=== PATIENT | male | born 1970 | race Native Hawaiian/Other Pacific Islander ===

== ENCOUNTER 2016-08-13 | Outpatient (CLI) | payer MEDICARE, MEDICAID | END 2016-08-13 10:25 | disposition short-term general hospital (02) | CPT/HCPCS: A0425; A0429 ==

== ENCOUNTER 2016-10-16 08:21 | Outpatient (CLI) | payer MEDICARE, MEDICAID | END 2016-10-16 08:22 | disposition home or self-care (01) | DX: Z13.9 Encounter for screening, unspecified (principal); I70.203 Unspecified atherosclerosis of native arteries of extremities, bilateral legs; I73.9 Peripheral vascular disease, unspecified ==

== ENCOUNTER 2016-10-16 08:27 | Outpatient (CLI) | payer MEDICARE, MEDICAID | END 2016-10-16 08:28 | disposition home or self-care (01) | DX: Z13.9 Encounter for screening, unspecified (principal); I73.9 Peripheral vascular disease, unspecified ==

== ENCOUNTER 2016-10-16 08:34 | Outpatient (CLI) | payer MEDICARE, MEDICAID | END 2016-10-16 08:35 | disposition home or self-care (01) | DX: Z13.9 Encounter for screening, unspecified (principal); I73.9 Peripheral vascular disease, unspecified; I70.203 Unspecified atherosclerosis of native arteries of extremities, bilateral legs ==

== ENCOUNTER 2016-10-16 08:35 | Outpatient (CLI) | payer MEDICARE, MEDICAID | END 2016-10-16 08:36 | disposition home or self-care (01) | DX: Z13.9 Encounter for screening, unspecified (principal); N18.6 End stage renal disease; I70.203 Unspecified atherosclerosis of native arteries of extremities, bilateral legs; I73.9 Peripheral vascular disease, unspecified; N26.1 Atrophy of kidney (terminal); K80.20 Calculus of gallbladder without cholecystitis without obstruction; I25.10 Atherosclerotic heart disease of native coronary artery without angina pectoris; K42.9 Umbilical hernia without obstruction or gangrene ==

== ENCOUNTER 2016-11-06 09:11 | Outpatient (CLI) | payer MEDICARE, MEDICAID ==
[2016-11-06] MEDS ORDERED: ADENOSINE 90 MG/30 ML VIAL IVP SCH (10:00)
== END 2016-11-06 09:12 | disposition home or self-care (01) ==
DX: I42.9 Cardiomyopathy, unspecified (principal); E11.9 Type 2 diabetes mellitus without complications
CPT/HCPCS: 78452; 93017; A9500; J0153

== ENCOUNTER 2016-12-01 10:17 | Outpatient (CLI) | payer MEDICARE, MEDICAID | END 2016-12-01 10:18 | disposition short-term general hospital (02) | LOC: EMS 10:17 | PROVIDERS: ATTEND Surgery | DX: R07.9 Chest pain, unspecified (principal) | CPT/HCPCS: A0425; A0427 ==

== ENCOUNTER 2016-12-11 11:05 | Outpatient (CLI) | payer MEDICARE, MEDICAID | END 2016-12-11 11:06 | disposition home or self-care (01) | DX: I48.91 Unspecified atrial fibrillation (principal) ==

== ENCOUNTER 2016-12-15 14:16 | Outpatient (CLI) | payer MEDICARE, MEDICAID | END 2016-12-15 23:59 | disposition home or self-care (01) | LOC: LAB.N 14:16 | PROVIDERS: ATTEND Nurse Practitioner Gerontology | DX: I48.91 Unspecified atrial fibrillation (principal) | CPT/HCPCS: 85610 ==

== ENCOUNTER 2016-12-16 10:27 | Outpatient (CLI) | payer MEDICARE, MEDICAID ==
--- NOTE | 2016-12-16 19:05 | XRAY Report ---
CHEST, PA AND LATERAL: 12/16/2016 CLINICAL HISTORY: ESRD. COMPARISON: None. FINDINGS: Borderline heart size is noted. Mediastinum shows some mild prominence superiorly. Dialy sis catheter is noted in place entering the vascular system at the junction of the left jugular and s ubclavian veins and having its tip in the proximal aspect of the right atrium. Mild thickening of the right minor fissure is noted. Minimal interstitial parenchymal disease is sug gested about the right perihilar region. Combination of findings suggests minimal congestive heart f ailure. IMPRESSION: 1. BORDERLINE HEART SIZE WITH SUGGESTION OF MINIMAL CONGESTIVE HEART FAILURE. 2. DIALYSIS CATHETER IS NOTED IN PLACE WITH ITS TIP IN THE PROXIMAL RIGHT ATRIUM. JOB #: [id number] EXT JOB #:[id number]
== END 2016-12-16 10:28 | disposition home or self-care (01) ==
LOC: DI.N 10:27
PROVIDERS: ATTEND Internal Medicine Nephrology
DX: N18.6 End stage renal disease (principal)
CPT/HCPCS: 71020

== ENCOUNTER 2016-12-25 09:36 | Outpatient (CLI) | payer MEDICARE, MEDICAID | END 2016-12-25 09:37 | disposition home or self-care (01) | DX: I48.91 Unspecified atrial fibrillation (principal) ==

== ENCOUNTER 2017-01-01 13:42 | Outpatient (CLI) | payer MEDICARE, MEDICAID | END 2017-01-01 13:43 | disposition home or self-care (01) | LOC: LAB.N 13:42 | PROVIDERS: ATTEND Nurse Practitioner Gerontology | DX: I48.91 Unspecified atrial fibrillation (principal) | CPT/HCPCS: 85610 ==

== ENCOUNTER 2017-01-08 11:01 | Outpatient (CLI) | payer MEDICARE, MEDICAID | END 2017-01-08 11:02 | disposition home or self-care (01) | LOC: LAB.N 11:01 | PROVIDERS: ATTEND Nurse Practitioner Gerontology | DX: I48.91 Unspecified atrial fibrillation (principal) | CPT/HCPCS: 85610 ==

== ENCOUNTER 2017-01-15 10:16 | Outpatient (CLI) | payer MEDICARE, MEDICAID | END 2017-01-15 10:17 | disposition home or self-care (01) | LOC: LAB.N 10:16 | PROVIDERS: ATTEND Nurse Practitioner Gerontology | DX: I48.91 Unspecified atrial fibrillation (principal) | CPT/HCPCS: 85610 ==

== ENCOUNTER 2017-01-23 08:00 | Outpatient (CLI) | payer MEDICARE, MEDICAID | END 2017-01-23 08:01 | disposition home or self-care (01) | LOC: LAB.N 08:00 | PROVIDERS: ATTEND Nurse Practitioner Gerontology | DX: I48.91 Unspecified atrial fibrillation (principal) | CPT/HCPCS: 85610 ==

== ENCOUNTER 2017-02-12 11:35 | Outpatient (CLI) | payer MEDICARE, MEDICAID | END 2017-02-12 11:36 | disposition home or self-care (01) | LOC: LAB.N 11:35 | PROVIDERS: ATTEND Nurse Practitioner Gerontology | DX: I48.91 Unspecified atrial fibrillation (principal) | CPT/HCPCS: 36415; 83036; 85610 ==

== ENCOUNTER 2017-02-16 13:27 | Outpatient (CLI) | payer MEDICARE, MEDICAID | END 2017-02-16 23:59 | disposition home or self-care (01) | LOC: LAB.N 13:27 | PROVIDERS: ATTEND Nurse Practitioner Gerontology | DX: I48.91 Unspecified atrial fibrillation (principal) | CPT/HCPCS: 85610 ==

== ENCOUNTER 2017-02-20 13:17 | Outpatient (CLI) | payer MEDICARE, MEDICAID | END 2017-02-20 13:18 | disposition home or self-care (01) | LOC: LAB.N 13:17 | PROVIDERS: ATTEND Nurse Practitioner Gerontology | DX: I48.91 Unspecified atrial fibrillation (principal) | CPT/HCPCS: 85610 ==

== ENCOUNTER 2017-02-23 08:00 | Outpatient (CLI) | payer MEDICARE, MEDICAID | END 2017-02-23 08:01 | LOC: LAB.N 08:00 | PROVIDERS: ATTEND Nurse Practitioner Gerontology | DX: I48.91 Unspecified atrial fibrillation (principal) | CPT/HCPCS: 85610 ==

== ENCOUNTER 2017-03-02 08:00 | Outpatient (CLI) | payer MEDICARE, MEDICAID | END 2017-03-02 08:01 | disposition home or self-care (01) | LOC: LAB.N 08:00 | PROVIDERS: ATTEND Nurse Practitioner Gerontology | DX: I48.91 Unspecified atrial fibrillation (principal) | CPT/HCPCS: 85610 ==

== ENCOUNTER 2017-03-10 10:34 | Outpatient (CLI) | payer MEDICARE, MEDICAID | END 2017-03-10 10:35 | disposition home or self-care (01) | LOC: LAB.N 10:34 | PROVIDERS: ATTEND Nurse Practitioner Gerontology | DX: I48.91 Unspecified atrial fibrillation (principal) | CPT/HCPCS: 85610 ==

== ENCOUNTER 2017-03-17 08:00 | Outpatient (CLI) | payer MEDICARE, MEDICAID | END 2017-03-17 08:01 | disposition home or self-care (01) | LOC: LAB.N 08:00 | PROVIDERS: ATTEND Nurse Practitioner Gerontology | DX: I48.91 Unspecified atrial fibrillation (principal) | CPT/HCPCS: 85610 ==

== ENCOUNTER 2017-03-24 20:21 | Outpatient (CLI) | payer MEDICARE, MEDICAID | END 2017-03-24 20:22 | disposition home or self-care (01) | LOC: LAB.N 20:21 | PROVIDERS: ATTEND Nurse Practitioner Gerontology | DX: I48.91 Unspecified atrial fibrillation (principal) | CPT/HCPCS: 85610 ==

== ENCOUNTER 2017-04-03 08:00 | Outpatient (CLI) | payer MEDICARE, MEDICAID | END 2017-04-03 08:01 | disposition home or self-care (01) | LOC: LAB.N 08:00 | PROVIDERS: ATTEND Nurse Practitioner Gerontology | DX: I48.91 Unspecified atrial fibrillation (principal) | CPT/HCPCS: 85610 ==

== ENCOUNTER 2017-04-17 14:27 | Outpatient (CLI) | payer MEDICARE, MEDICAID | END 2017-04-17 14:28 | disposition home or self-care (01) | LOC: LAB.N 14:27 | PROVIDERS: ATTEND Nurse Practitioner Gerontology | DX: I48.91 Unspecified atrial fibrillation (principal) | CPT/HCPCS: 85610 ==

== ENCOUNTER 2017-04-30 08:48 | Outpatient (CLI) | payer MEDICARE, MEDICAID | END 2017-04-30 08:49 | disposition home or self-care (01) | LOC: LAB.N 08:48 | PROVIDERS: ATTEND Nurse Practitioner Gerontology | DX: I48.91 Unspecified atrial fibrillation (principal) | CPT/HCPCS: 85610 ==

== ENCOUNTER 2017-05-15 15:09 | Outpatient (CLI) | payer MEDICARE, MEDICAID | END 2017-05-15 15:10 | disposition home or self-care (01) | LOC: LAB.N 15:09 | PROVIDERS: ATTEND Nurse Practitioner Gerontology | DX: I48.91 Unspecified atrial fibrillation (principal) | CPT/HCPCS: 85610 ==

== ENCOUNTER 2017-05-21 14:47 | Outpatient (CLI) | payer MEDICARE, MEDICAID | END 2017-05-21 14:48 | disposition home or self-care (01) | LOC: LAB.N 14:47 | PROVIDERS: ATTEND Nurse Practitioner Gerontology | DX: I48.91 Unspecified atrial fibrillation (principal) | CPT/HCPCS: 85610 ==

== ENCOUNTER 2017-06-11 13:18 | Outpatient (CLI) | payer MEDICARE, MEDICAID | END 2017-06-11 13:19 | disposition home or self-care (01) | LOC: LAB.N 13:18 | PROVIDERS: ATTEND Nurse Practitioner Gerontology | DX: I48.91 Unspecified atrial fibrillation (principal) | CPT/HCPCS: 85610 ==

== ENCOUNTER 2017-06-17 09:15 | Outpatient (CLI) | payer MEDICARE, MEDICAID | END 2017-06-17 09:16 | disposition home or self-care (01) | LOC: LAB.N 09:15 | PROVIDERS: ATTEND Nurse Practitioner Gerontology | DX: I48.91 Unspecified atrial fibrillation (principal) | CPT/HCPCS: 85610 ==

== ENCOUNTER 2017-06-23 20:26 | Outpatient (CLI) | payer MEDICARE, MEDICAID | END 2017-06-23 20:27 | disposition home or self-care (01) | LOC: LAB.N 20:26 | PROVIDERS: ATTEND Nurse Practitioner Gerontology | DX: I48.91 Unspecified atrial fibrillation (principal) | CPT/HCPCS: 85610 ==

== ENCOUNTER 2017-06-26 14:09 | Outpatient (CLI) | payer MEDICARE, MEDICAID | END 2017-06-26 14:10 | disposition home or self-care (01) | LOC: LAB.N 14:09 | PROVIDERS: ATTEND Nurse Practitioner Gerontology | DX: I48.91 Unspecified atrial fibrillation (principal) | CPT/HCPCS: 85610 ==

== ENCOUNTER 2017-07-03 14:00 | Outpatient (CLI) | payer MEDICARE, MEDICAID | END 2017-07-03 14:01 | disposition home or self-care (01) | LOC: LAB.N 14:00 | PROVIDERS: ATTEND Nurse Practitioner Gerontology | DX: I48.91 Unspecified atrial fibrillation (principal) | CPT/HCPCS: 85610 ==

== ENCOUNTER 2017-07-14 08:00 | Outpatient (CLI) | payer MEDICARE, MEDICAID | END 2017-07-14 08:01 | disposition home or self-care (01) | LOC: LAB.N 08:00 | PROVIDERS: ATTEND Nurse Practitioner Gerontology | DX: I48.91 Unspecified atrial fibrillation (principal) | CPT/HCPCS: 85610 ==

== ENCOUNTER 2017-07-30 09:28 | Outpatient (CLI) | payer MEDICARE, MEDICAID | END 2017-07-30 09:29 | disposition home or self-care (01) | LOC: LAB.N 09:28 | PROVIDERS: ATTEND Nurse Practitioner Gerontology | DX: I48.91 Unspecified atrial fibrillation (principal) | CPT/HCPCS: 85610 ==

== ENCOUNTER 2017-09-01 08:00 | Outpatient (CLI) | payer MEDICARE, MEDICAID | END 2017-09-01 08:01 | disposition home or self-care (01) | LOC: LAB.N 08:00 | PROVIDERS: ATTEND Nurse Practitioner Gerontology | DX: I48.91 Unspecified atrial fibrillation (principal) | CPT/HCPCS: 85610 ==

== ENCOUNTER 2017-09-05 14:56 | Outpatient (CLI) | payer MEDICARE, MEDICAID ==
--- NOTE | 2017-09-06 10:42 | Ultrasound Report ---
EXAM: ABDOMEN ULTRASOUND EXAM DATE: 09/05/2017 03:50 PM. CLINICAL HISTORY: End-stage renal disease. Health screen for future renal transplant. COMPARISON: 10/16/2016. TECHNIQUE: Real-time scanning was performed with static images obtained. FINDINGS: Liver: Liver parenchyma is heterogeneous and moderately hyperechoic. No discrete liver masses or in trahepatic bile duct dilation. However, evaluation for masses is limited secondary to the echogenici ty. 14.3 cm. Main portal vein flow: Hepatopetal. Gallbladder: Gallstones are noted measuring up to 1 cm. Diffuse gallbladder wall thickening. No peric holecystic fluid or sonographic Lugo sign noted. Biliary System: Common bile duct measures 4.9 mm. No intrahepatic or extrahepatic ductal dilatation. Pancreas: Not well seen due to echogenic liver and bowel gas. Kidneys: Right: 11.4 cm longitudinally. Echogenic renal cortex. No mass, stones or hydronephrosis. Left: 11.8 cm longitudinally. Echogenic renal cortex. No mass, stones or hydronephrosis. Spleen: 14.2 x 5.3 x 14.8 cm. Enlarged spleen measuring up to 582.5 cc. No mass lesion. Aorta and Inferior Vena Cava: Normal mid and proximal aorta. Distal aorta obscured by bowel gas. Norm al IVC. Other: None. IMPRESSION: 1. Bilateral atrophic, echogenic kidneys. No stones, mass or hydronephrosis. 2. Fatty liver. No mass. 3. Gallstones with diffusely thickened gallbladder wall. Negative sonographic Lugo sign. No pericho lecystic fluid. Findings are nonspecific but could be due to chronic cholecystitis. Correlate clinica lly. 4. Pancreas obscured by bowel gas. Normal common bile duct. [facility] Referring Provider Line: [phone] SITE ID: [id number]
== END 2017-09-05 14:57 | disposition home or self-care (01) ==
LOC: DI 14:56
PROVIDERS: ATTEND Internal Medicine Nephrology
DX: N18.6 End stage renal disease (principal); Z13.9 Encounter for screening, unspecified; K76.0 Fatty (change of) liver, not elsewhere classified; K80.80 Other cholelithiasis without obstruction
CPT/HCPCS: 76700

== ENCOUNTER 2017-10-13 09:05 | Outpatient (CLI) | payer MEDICARE, MEDICAID | END 2017-10-13 09:06 | disposition home or self-care (01) | LOC: LAB.N 09:05 | PROVIDERS: ATTEND Nurse Practitioner Gerontology | DX: I48.91 Unspecified atrial fibrillation (principal) | CPT/HCPCS: 85610 ==

== ENCOUNTER 2017-10-22 12:59 | Outpatient (CLI) | payer MEDICARE, MEDICAID | END 2017-10-22 13:00 | disposition home or self-care (01) | LOC: LAB.N 12:59 | PROVIDERS: ATTEND Nurse Practitioner Gerontology | DX: I48.91 Unspecified atrial fibrillation (principal) | CPT/HCPCS: 85610 ==

== ENCOUNTER 2017-10-26 23:33 | Outpatient (CLI) | payer MEDICARE, MEDICAID | END 2017-10-26 23:34 | disposition home or self-care (01) | LOC: LAB.N 23:33 | PROVIDERS: ATTEND Nurse Practitioner Gerontology | DX: I48.91 Unspecified atrial fibrillation (principal) | CPT/HCPCS: 85610 ==

== ENCOUNTER 2017-11-03 08:00 | Outpatient (CLI) | payer MEDICARE, MEDICAID | END 2017-11-03 08:01 | disposition home or self-care (01) | LOC: LAB.N 08:00 | PROVIDERS: ATTEND Nurse Practitioner Gerontology | DX: I48.91 Unspecified atrial fibrillation (principal) | CPT/HCPCS: 85610 ==

== ENCOUNTER 2017-11-16 11:20 | Outpatient (CLI) | payer MEDICARE, MEDICAID | END 2017-11-16 11:21 | disposition home or self-care (01) | LOC: LAB.N 11:20 | PROVIDERS: ATTEND Nurse Practitioner Gerontology | DX: I48.91 Unspecified atrial fibrillation (principal) | CPT/HCPCS: 85610 ==

== ENCOUNTER 2017-12-01 08:00 | Outpatient (CLI) | payer MEDICARE, MEDICAID | END 2017-12-01 08:01 | disposition home or self-care (01) | LOC: LAB.N 08:00 | PROVIDERS: ATTEND Nurse Practitioner Gerontology | DX: I48.91 Unspecified atrial fibrillation (principal) | CPT/HCPCS: 85610 ==

== ENCOUNTER 2017-12-18 08:00 | Outpatient (CLI) | payer MEDICARE, MEDICAID | END 2017-12-18 08:01 | disposition home or self-care (01) | LOC: LAB.N 08:00 | PROVIDERS: ATTEND Nurse Practitioner Gerontology | DX: I48.91 Unspecified atrial fibrillation (principal) | CPT/HCPCS: 85610 ==

== ENCOUNTER 2018-01-20 13:39 | Outpatient (CLI) | payer MEDICARE, MEDICAID | END 2018-01-20 13:40 | disposition home or self-care (01) | LOC: LAB.N 13:39 | PROVIDERS: ATTEND Nurse Practitioner Gerontology | DX: I48.91 Unspecified atrial fibrillation (principal) | CPT/HCPCS: 85610 ==

== ENCOUNTER 2018-01-30 10:24 | Outpatient (CLI) | payer MEDICARE, MEDICAID | END 2018-01-30 10:25 | disposition critical access hospital (66) | LOC: EMS 10:24 | PROVIDERS: ATTEND Surgery | DX: R58 Hemorrhage, not elsewhere classified (principal); Z79.01 Long term (current) use of anticoagulants | CPT/HCPCS: A0425; A0429 ==

== ENCOUNTER 2018-01-30 10:42 | Emergency (ER) | payer MEDICARE, MEDICAID ==
--- NOTE | 2018-01-30 11:40 | ED Physician Documentation ---
PD HPI SKIN - Stated complaint Stated Complaint: Bleeding wound - Chief complaint Chief Complaint: Ext Problem - History obtained from History obtained from: Patient - History of Present Illness Timing - onset: Today (he noted bleeding from left little toe this morning when got out of bed. Not aware of injury but does not have sensation in feet due to diabetes. He also says he has felt some chills and fatigue the past 2 days.) Timing - details: Abrupt onset Location: LLE (little toe wound) Quality / character: No: Painful Associated symptoms: Fever (felt chills the past 1-2 days), Myalgias Similar symptoms before: Has not had sx before Recently seen: Clinic (had port catheter removed 2 weeks ago left upper chest wall) Review of Systems Constitutional: reports: Chills, Myalgias Nose: denies: Rhinorrhea / runny nose, Congestion Throat: denies: Sore throat Respiratory: denies: Cough GI: denies: Abdominal Pain, Vomiting, Diarrhea : reports: Other (he does not produce urine.) PD PAST MEDICAL HISTORY - Past Medical History Cardiovascular: Hypertension, High cholesterol, Peripheral Vascular Disease, Valve disorder, Other Respiratory: None Neuro: Peripheral neuropathy Endocrine/Autoimmune: Type 2 diabetes GI: None : Dialysis, Renal insuffiency HEENT: Chronic vision loss Psych: None Musculoskeletal: None Derm: None - Past Surgical History Past Surgical History: Yes Ortho: Other - Present Medications Home Medications: Ambulatory Orders Medication Instructions Recorded Confirmed Cinacalcet HCl [Sensipar] 60 mg PO DAILY 09/15/14 06/08/15 Insulin Glargine [Lantus] 30 unit SUBQ DAILY 09/15/14 06/08/15 Paricalcitol [Zemplar] 16 mcg PO DAILY 09/15/14 06/08/15 Sevelamer Carbonate [Renvela] 1,600 mg PO TID 09/15/14 06/08/15 Insulin Glulisine [Apidra] 10 units SQ AC 03/13/15 06/08/15 - Allergies Allergies/Adverse Reactions: Allergies Allergy/AdvReac Type Severity Reaction Status Date / Time No Known Drug Allergies Allergy Verified 09/15/14 15:09 - Social History Does the pt smoke?: No Smoking Status: Never smoker Does the pt drink ETOH?: No Does the pt have substance abuse?: No - Immunizations Immunizations are current?: Yes - POLST Patient has POLST: No PD ED PE NORMAL - Vitals Vital signs reviewed: Yes - General General: Alert and oriented X 3, No acute distress, Well developed/nourished - HEENT HEENT: Ears normal, Pharynx benign - Neck Neck: Supple, no meningeal sign, No adenopathy - Cardiac Cardiac: RRR, No murmur - Respiratory Respiratory: Clear bilaterally, Other (left upper chest subclavicular area with small scab, some tenderness. No redness, warmth nor swelling at the area. ) - Abdomen Abdomen: Normal bowel sounds, Soft, Non tender, Non distended, Other (dialysis cath site without signs of infection. ) - Back Back: No CVA TTP - Derm Derm: Normal color, Warm and dry - Extremities Extremities: Other (left little toe underside with laceration at flexion crease. Mild ongoing bleeding. No signs of infection at the skin there. ) - Neuro Neuro: Alert and oriented X 3, No motor deficit, Normal speech Results - Vitals Vitals: Vital Signs - 24 hr 01/30/18 01/30/18 01/30/18 10:42 11:06 13:03 Temperature 36 C L 39.1 C H Heart Rate 92 91 Respiratory 18 18 Rate Blood Pressure 103/54 L 92/50 L 103/55 L O2 Saturation 100 96 01/30/18 01/30/18 01/30/18 13:20 13:26 14:07 Temperature 39.0 C H 38.9 C H Heart Rate 89 92 91 Respiratory 21 24 20 Rate Blood Pressure 103/55 L 107/49 L 115/59 L O2 Saturation 95 92 96 01/30/18 01/30/18 01/30/18 15:59 16:49 16:56 Temperature 37.5 C Heart Rate 94 93 Respiratory 19 21 Rate Blood Pressure 104/64 90/35 L O2 Saturation 96 93 Oxygen O2 Source Room air - Labs Labs: Laboratory Tests 01/30/18 01/30/18 01/30/18 13:10 13:10 13:10 WBC 5.3 RBC 2.84 L Hgb 10.1 L Hct 29.8 L MCV 105.1 H MCH 35.6 H MCHC 33.9 RDW 16.8 H Plt Count 137 MPV 7.3 L Neut # (Auto) 4.2 Lymph # (Auto) 0.5 L [place] # (Auto) 0.5 Eos # (Auto) 0.0 Baso # (Auto) 0.1 Absolute Nucleated RBC 0.00 Nucleated RBC % 0.0 Sodium 126 L Potassium 3.9 Chloride 89 L Carbon Dioxide 25 Anion Gap 12.0 BUN 61 H Creatinine 11.5 H* Estimated GFR (MDRD) 5 L Glucose 148 H Lactic Acid 1.3 Calcium 7.5 L Total Bilirubin 1.3 H AST 15 ALT 12 Alkaline Phosphatase 107 Total Protein 8.2 Albumin 2.9 L Globulin 5.3 H Albumin/Globulin Ratio 0.5 L Lipase 20 L - Rads (name of study) chest Radiology: Prelim report reviewed (no acute infiltrates. ) Procedures - Laceration (location) left litte toe Length in cm: 1 Wound type: Curved Neurovascular status: Motor intact, Vascular intact. No: Sensory intact (has neuropathy from diabetes, so no feeling there) Tendon involvement: No: Tendon Injury Anesthesia: Lidocaine 1% Wound Preparation: Irrigated copiously NS Skin layer closure: Nylon, Interrupted, Running, Size #-0 - enter number (4) Other: Patient tolerated well, No complications, Dressing applied Complexity: Simple PD MEDICAL DECISION MAKING - ED course Complexity details: reviewed results, re-evaluated patient, considered differential (the toe injury does not look infected. Looks new injury. It is sutured and the bleeding stops. He has fever for 2 days, and no obvious source. Does not have abd pain nor tenderness. Catheter site without infection appearance. He has some pain at left upper chest wall, at area of catheter removal. No redness, warmth, swelling seen though. ), d/w patient, d/w senior market intelligence consultant (SURJIT Appiah, who suggested doses of IV abx and follow up outpt in 2-3 days. ) - Sepsis Event Vital Signs: Vital Signs - 24 hr 01/30/18 01/30/18 01/30/18 10:42 11:06 13:03 Temperature 36 C L 39.1 C H Heart Rate 92 91 Respiratory 18 18 Rate Blood Pressure 103/54 L 92/50 L 103/55 L O2 Saturation 100 96 01/30/18 01/30/18 01/30/18 13:20 13:26 14:07 Temperature 39.0 C H 38.9 C H Heart Rate 89 92 91 Respiratory 21 24 20 Rate Blood Pressure 103/55 L 107/49 L 115/59 L O2 Saturation 95 92 96 01/30/18 01/30/18 01/30/18 15:59 16:49 16:56 Temperature 37.5 C Heart Rate 94 93 Respiratory 19 21 Rate Blood Pressure 104/64 90/35 L O2 Saturation 96 93 Oxygen O2 Source Room air Departure - Departure Disposition: 01 Home, Self Care Clinical Impression: Peritoneal dialysis catheter in place Fever Qualifiers: Fever type: unspecified Qualified Code(s): R50.9 - Fever, unspecified Renal failure Qualifiers: Renal failure chronicity: chronic Chronic kidney disease stage: on chronic dialysis Qualified Code(s): N18.6 - End stage renal disease Toe laceration Qualifiers: Encounter type: initial encounter Toe: lesser toe Damage to nail status: without damage Foreign body presence: without foreign body Laterality: left Qualified Code(s): S91.115A - Laceration without foreign body of left lesser toe (s) without damage to nail, initial encounter Condition: Stable Record reviewed to determine appropriate education?: Yes Instructions: ED Fever Unconf Cause, ED Laceration Foot Follow-Up: Tiffanie Diehl ARNP [Primary Care Provider] - Cori Appiah MD [Provider Admit Priv/Credential] - Comments: Continue usual medications. We did give some high doses of IV antibiotics here. I talked with Dr. Appiah about this and that was his direction, and then to follow-up in the clinic in the next couple of days for culture results and update on your fever pattern. At this point I do not have an obvious source of infection. For your toe laceration, clean it with soap and water once or twice daily and apply some ointment. Sutures should be removed in about 10-12 days. Have that reassessed in the next few days as well to ensure no signs of infection developing.
[2018-01-30] MEDS ORDERED: LIDOCAINE MPF 1%-EPI 1:200000 30 ML VIAL SUBQ STA (12:31)
[2018-01-30] MEDS ORDERED: LIDOCAINE 1%-EPI 1:100000 30 ML MDV ONE (12:44)
[2018-01-30 13:21] LABS: BASOPHILS # (AUTO) 0.1 10^3/uL (0.0-0.1); BASOPHILS % (AUTO) 1.2 %; HGB - HEMOGLOBIN 10.1 g/dL (14.0-18.0); LYMPHOCYTES # (AUTO) 0.5 10^3/uL (1.5-3.5); LYMPHOCYTES % (AUTO) 9.5 %; MEAN CORPUSCULAR HEMOGLOBIN 35.6 pg (27.0-31.0); MEAN CORPUSCULAR HGB CONC 33.9 g/dL (32.0-36.0); MEAN CORPUSCULAR VOLUME 105.1 fL (80.0-94.0); MEAN PLATELET VOLUME 7.3 fL (7.4-11.4); MONOCYTES # (AUTO) 0.5 10^3/uL (0.0-1.0); MONOCYTES % (AUTO) 9.1 %; NEUTROPHILS # (AUTO) 4.2 10^3/uL (1.5-6.6); NEUTROPHILS % (AUTO) 80.2 %; PLT - PLATELET COUNT 137 10^3/uL (130-450); RED BLOOD COUNT 2.84 10^6/uL (4.70-6.10); RED CELL DISTRIBUTION WIDTH 16.8 % (12.0-15.0); WHITE BLOOD COUNT 5.3 x10^3/uL (4.8-10.8)
[2018-01-30 13:38] LABS: ALBUMIN 2.9 g/dL (3.2-5.5); ALBUMIN/GLOBULIN RATIO 0.5 (1.0-2.2); BILIRUBIN,TOTAL 1.3 mg/dL (0.2-1.0); CALCIUM 7.5 mg/dL (8.5-10.3); TOTAL PROTEIN 8.2 g/dL (6.7-8.2)
[2018-01-30 13:49] LABS: CREATININE 11.5 mg/dL (0.6-1.2)
[2018-01-30] MEDS ORDERED: ACETAMINOPHEN 325 MG TABLET PO STA (13:50)
--- NOTE | 2018-01-30 14:06 | XRAY Report ---
Procedure Date: 01/30/2018 Accession Number: [id number] / [id number] Procedure: XR - Chest 2 View X-Ray CPT Code: 20325 FULL RESULT: EXAM: CHEST RADIOGRAPHY EXAM DATE: 01/30/2018 01:43 PM. CLINICAL HISTORY: Chest pain left sided. COMPARISON: 10/29/2010. TECHNIQUE: 2 views. FINDINGS: Technique limits detail. Lungs/pleura: No focal opacities evident. No pleural effusion. No pneumothorax. Normal volumes. Mediastinum: Heart size upper normal. Mediastinal contour is stable. Other: No acute osseous abnormalities. IMPRESSION: 1. No acute disease in the chest. [facility]
[2018-01-30] MEDS ORDERED: VANCOMYCIN INJ 2 GM in SODIUM CHLORIDE 0.9% 500 ML IV STA (14:53)
[2018-01-30] MEDS ORDERED: cefTAZidime 2 GM in SODIUM CHLORIDE 0.9% MINIBAG 100 ML IV STA (14:53)
[2018-01-30] MEDS ORDERED: KETOROLAC 60 MG/2 ML VIAL IVP STA (17:09)
[2018-01-30] MEDS ORDERED: MORPHINE 10 MG/ML VIAL IVP STA (17:09)
[2018-01-30 18:53] VITALS: BP 117/68
== END 2018-01-30 18:30 | disposition home or self-care (01) ==
LOC: EDUNIT# → EDBD → ED 10:42
DX: R50.9 Fever, unspecified (principal); E11.42 Type 2 diabetes mellitus with diabetic polyneuropathy; E11.22 Type 2 diabetes mellitus with diabetic chronic kidney disease; I12.0 Hypertensive chronic kidney disease with stage 5 chronic kidney disease or end stage renal disease; N18.6 End stage renal disease; Z99.2 Dependence on renal dialysis; Z79.4 Long term (current) use of insulin; S91.115A Laceration without foreign body of left lesser toe(s) without damage to nail, initial encounter; X58.XXXA Exposure to other specified factors, initial encounter; Z96.89 Presence of other specified functional implants
CPT/HCPCS: 12001; 36415; 71046; 80053; 83605; 83690; 85025; 87040; 87181; 96365; 96366; 96367; 96375; 99283; 99284; A9270; J3370

== ENCOUNTER 2018-01-31 14:01 | Emergency (ER) | payer MEDICARE, MEDICAID ==
[2018-01-31 14:24] VITALS: BP 105/51
--- NOTE | 2018-01-31 15:13 | ED Physician Documentation ---
History of Present Illness - Stated complaint Stated Complaint: FOLLOW UP TO LAB - Chief complaint Chief Complaint: General - History obtained from History obtained from: Patient - History of Present Illness Timing: How many days ago (few days of malaise and fevers.) - Treatment prior to arrival Treatment prior to arrival: He was seen yesterday here in the ER with fever and had lab testing done as well as blood cultures and was given IV antibiotics. Consultation was made with his supportability engineer who said he would do follow-up within 2 days. The patient does have an appointment tomorrow in the clinic for follow-up. However his blood cultures are positive and he was called back for here. He states he is feeling a little bit better today but still has some fever. Review of Systems Constitutional: reports: Fever, Chills, Myalgias Nose: denies: Rhinorrhea / runny nose, Congestion Throat: denies: Sore throat GI: denies: Abdominal Pain, Nausea, Vomiting, Diarrhea : denies: Dysuria, Frequency Skin: denies: Rash PD PAST MEDICAL HISTORY - Past Medical History Cardiovascular: Hypertension, High cholesterol, Peripheral Vascular Disease, Valve disorder, Other Respiratory: None Neuro: Peripheral neuropathy Endocrine/Autoimmune: Type 2 diabetes GI: None : Dialysis, Renal insuffiency HEENT: Chronic vision loss Psych: None Musculoskeletal: None Derm: None - Past Surgical History Past Surgical History: Yes Ortho: Other - Present Medications Home Medications: Ambulatory Orders Medication Instructions Recorded Confirmed Cinacalcet HCl [Sensipar] 60 mg PO DAILY 09/15/14 06/08/15 Insulin Glargine [Lantus] 30 unit SUBQ DAILY 09/15/14 06/08/15 Paricalcitol [Zemplar] 16 mcg PO DAILY 09/15/14 06/08/15 Sevelamer Carbonate [Renvela] 1,600 mg PO TID 09/15/14 06/08/15 Insulin Glulisine [Apidra] 10 units SQ AC 03/13/15 06/08/15 - Allergies Allergies/Adverse Reactions: Allergies Allergy/AdvReac Type Severity Reaction Status Date / Time No Known Drug Allergies Allergy Verified 01/31/18 14:23 - Social History Does the pt smoke?: No Smoking Status: Never smoker Does the pt drink ETOH?: No Does the pt have substance abuse?: No - Immunizations Immunizations are current?: Yes - POLST Patient has POLST: No PD ED PE NORMAL - Vitals Vital signs reviewed: Yes - General General: Alert and oriented X 3, No acute distress, Well developed/nourished - HEENT HEENT: Pharynx benign - Neck Neck: Supple, no meningeal sign, No adenopathy - Cardiac Cardiac: RRR - Respiratory Respiratory: Clear bilaterally, Other (left chestwall upper with some tenderness but no redness nor swelling nor warmth. ) - Abdomen Abdomen: Soft, Non tender - Male Male : Deferred - Rectal Rectal: Deferred - Back Back: No CVA TTP - Derm Derm: Normal color, Warm and dry - Extremities Extremities: Other (left toe lac with bandage in place; mild blood on dressing. ) - Neuro Neuro: Alert and oriented X 3, No motor deficit, Normal speech Eye Opening: Spontaneous Motor: Obeys Commands Verbal: Oriented GCS Score: 15 - Psych Psych: Normal mood, Normal affect Results - Vitals Vitals: Vital Signs - 24 hr 01/31/18 14:20 Temperature 38.1 C H Heart Rate 93 Respiratory 18 Rate Blood Pressure 105/51 L O2 Saturation 95 Oxygen O2 Source Room air - Labs Labs: Laboratory Tests 01/31/18 01/31/18 01/31/18 15:06 15:06 15:06 WBC 8.6 RBC 2.86 L Hgb 10.2 L Hct 29.8 L MCV 104.1 H MCH 35.8 H MCHC 34.4 RDW 17.1 H Plt Count 127 L MPV 7.7 Neut # (Auto) 7.5 H Lymph # (Auto) 0.4 L [place] # (Auto) 0.7 Eos # (Auto) 0.0 Baso # (Auto) 0.0 Absolute Nucleated RBC 0.00 Nucleated RBC % 0.0 Sodium 124 L Potassium 3.9 Chloride 85 L Carbon Dioxide 25 Anion Gap 14.0 H BUN 63 H Creatinine 12.1 H* Estimated GFR (MDRD) 4 L Glucose 176 H Lactic Acid 1.7 Calcium 7.7 L Total Bilirubin 2.1 H AST 18 ALT 15 Alkaline Phosphatase 96 Total Protein 8.3 H Albumin 2.7 L Globulin 5.6 H Albumin/Globulin Ratio 0.5 L Lipase 16 L PD MEDICAL DECISION MAKING - ED course Complexity details: reviewed results, considered differential (This patient was seen here yesterday for fever without obvious source. He was given IV antibiotics and discharged for anticipated follow-up tomorrow in the clinic with Dr. Rodriguez his supportability engineer. In the meantime we did get positive blood cultures 2 for gram-positive cocci. He is called back to the ER for further evaluation and presumed transfer to [facility] because of the need for dialysis as well as further treatment of the blood cultures and to identify the source of infection.), d/w patient, d/w test consultant (Dr. Tracy, hospitalist at [facility], who accepts transfer. ) - Sepsis Event Vital Signs: Vital Signs - 24 hr 01/31/18 14:20 Temperature 38.1 C H Heart Rate 93 Respiratory 18 Rate Blood Pressure 105/51 L O2 Saturation 95 Oxygen O2 Source Room air Departure - Departure Disposition: 02 Transfer Acute Care Hosp Clinical Impression: Positive blood cultures, Peritoneal dialysis catheter in place, Bacteremia Renal failure Qualifiers: Renal failure chronicity: chronic Chronic kidney disease stage: unspecified stage Qualified Code(s): N18.9 - Chronic kidney disease, unspecified Toe laceration Qualifiers: Encounter type: subsequent encounter Toe: lesser toe Damage to nail status: without damage Foreign body presence: without foreign body Laterality: left Qualified Code(s): S91.115D - Laceration without foreign body of left lesser toe (s) without damage to nail, subsequent encounter Fever Qualifiers: Fever type: due to other condition Qualified Code(s): R50.81 - Fever presenting with conditions classified elsewhere Condition: Stable Record reviewed to determine appropriate education?: Yes
[2018-01-31 15:17] LABS: BASOPHILS % (AUTO) 0.6 %; EOSINOPHILS % (AUTO) 0.2 %; HGB - HEMOGLOBIN 10.2 g/dL (14.0-18.0); LYMPHOCYTES # (AUTO) 0.4 10^3/uL (1.5-3.5); LYMPHOCYTES % (AUTO) 4.7 %; MEAN CORPUSCULAR HEMOGLOBIN 35.8 pg (27.0-31.0); MEAN CORPUSCULAR HGB CONC 34.4 g/dL (32.0-36.0); MEAN CORPUSCULAR VOLUME 104.1 fL (80.0-94.0); MEAN PLATELET VOLUME 7.7 fL (7.4-11.4); MONOCYTES # (AUTO) 0.7 10^3/uL (0.0-1.0); MONOCYTES % (AUTO) 7.6 %; NEUTROPHILS # (AUTO) 7.5 10^3/uL (1.5-6.6); NEUTROPHILS % (AUTO) 86.9 %; PLT - PLATELET COUNT 127 10^3/uL (130-450); RED BLOOD COUNT 2.86 10^6/uL (4.70-6.10); RED CELL DISTRIBUTION WIDTH 17.1 % (12.0-15.0); WHITE BLOOD COUNT 8.6 x10^3/uL (4.8-10.8)
[2018-01-31] MEDS ORDERED: MORPHINE 10 MG/ML VIAL IVP STA (15:26)
[2018-01-31] MEDS ORDERED: VANCOMYCIN INJ 1 GM in SODIUM CHLORIDE 0.9% 500 ML IV STA (15:28)
[2018-01-31 15:36] LABS: ALBUMIN 2.7 g/dL (3.2-5.5); ALBUMIN/GLOBULIN RATIO 0.5 (1.0-2.2); BILIRUBIN,TOTAL 2.1 mg/dL (0.2-1.0); CALCIUM 7.7 mg/dL (8.5-10.3); TOTAL PROTEIN 8.3 g/dL (6.7-8.2)
[2018-01-31 15:37] LABS: CREATININE 12.1 mg/dL (0.6-1.2)
[2018-01-31] MEDS ORDERED: VANCOMYCIN INJ 1 GM in SODIUM CHLORIDE 0.9% 250 ML IV STA (15:44)
[2018-01-31] MEDS ORDERED: IOPAMIDOL-300 100 ML VIAL ONE (15:57)
--- NOTE | 2018-01-31 16:33 | ED Physician Documentation ---
ED Addendum - Addendum Addendum: 01/31/18 16:32 placed a 20g IV in the L upper arm. tolerated well. flushes and draws easily.
== END 2018-01-31 16:31 | disposition short-term general hospital (02) ==
LOC: ED 14:01
DX: R78.81 Bacteremia (principal); I12.9 Hypertensive chronic kidney disease with stage 1 through stage 4 chronic kidney disease, or unspecified chronic kidney disease; E11.22 Type 2 diabetes mellitus with diabetic chronic kidney disease; N18.9 Chronic kidney disease, unspecified; Z99.2 Dependence on renal dialysis; E11.51 Type 2 diabetes mellitus with diabetic peripheral angiopathy without gangrene; E78.00 Pure hypercholesterolemia, unspecified
CPT/HCPCS: 36410; 36415; 80053; 83605; 83690; 85025; 87040; 96374; 96375; 99283; 99284; J3370

== ENCOUNTER 2018-01-31 16:33 | Outpatient (CLI) | payer MEDICARE, MEDICAID | END 2018-01-31 16:34 | disposition short-term general hospital (02) | LOC: EMS 16:33 | PROVIDERS: ATTEND Surgery | DX: R78.81 Bacteremia (principal); N19 Unspecified kidney failure | CPT/HCPCS: A0425; A0426 ==

== ENCOUNTER 2018-02-11 08:00 | Outpatient (CLI) | payer MEDICARE, MEDICAID | END 2018-02-11 08:01 | disposition home or self-care (01) | LOC: LAB.N 08:00 | PROVIDERS: ATTEND Nurse Practitioner Gerontology | DX: I48.91 Unspecified atrial fibrillation (principal) | CPT/HCPCS: 85610 ==

== ENCOUNTER 2018-02-15 08:46 | Outpatient (CLI) | payer MEDICARE, MEDICAID | END 2018-02-15 08:47 | disposition home or self-care (01) | LOC: LAB.N 08:46 | PROVIDERS: ATTEND Nurse Practitioner Gerontology | DX: I48.91 Unspecified atrial fibrillation (principal) | CPT/HCPCS: 85610 ==

== ENCOUNTER 2018-02-19 10:38 | Outpatient (CLI) | payer MEDICARE, MEDICAID | END 2018-02-19 10:39 | disposition home or self-care (01) | LOC: LAB 10:38 | PROVIDERS: ATTEND Internal Medicine | DX: R78.81 Bacteremia (principal) | CPT/HCPCS: 36415; 87040 ==

== ENCOUNTER 2018-02-22 08:00 | Outpatient (CLI) | payer MEDICARE, MEDICAID | END 2018-02-22 08:01 | disposition home or self-care (01) | LOC: LAB.N 08:00 | PROVIDERS: ATTEND Nurse Practitioner Gerontology | DX: I48.91 Unspecified atrial fibrillation (principal) | CPT/HCPCS: 85610 ==

== ENCOUNTER 2018-03-03 08:00 | Outpatient (CLI) | payer MEDICARE, MEDICAID | END 2018-03-03 08:01 | disposition home or self-care (01) | LOC: LAB.N 08:00 | PROVIDERS: ATTEND Nurse Practitioner Gerontology | DX: I48.91 Unspecified atrial fibrillation (principal) | CPT/HCPCS: 85610 ==

== ENCOUNTER 2018-03-09 08:00 | Outpatient (CLI) | payer MEDICARE, MEDICAID | END 2018-03-09 08:01 | disposition home or self-care (01) | LOC: LAB.N 08:00 | PROVIDERS: ATTEND Nurse Practitioner Gerontology | DX: I48.91 Unspecified atrial fibrillation (principal) | CPT/HCPCS: 85610 ==

== ENCOUNTER 2018-03-22 08:00 | Outpatient (CLI) | payer MEDICARE, MEDICAID | END 2018-03-22 08:01 | disposition home or self-care (01) | LOC: LAB.N 08:00 | PROVIDERS: ATTEND Nurse Practitioner Gerontology | DX: I48.91 Unspecified atrial fibrillation (principal) | CPT/HCPCS: 85610 ==

== ENCOUNTER 2018-03-26 13:55 | Outpatient (CLI) | payer MEDICARE, MEDICAID | END 2018-03-26 13:56 | disposition home or self-care (01) | LOC: LAB.N 13:55 | PROVIDERS: ATTEND Nurse Practitioner Gerontology | DX: I48.91 Unspecified atrial fibrillation (principal) | CPT/HCPCS: 85610 ==

== ENCOUNTER 2018-04-05 08:00 | Outpatient (CLI) | payer MEDICARE, MEDICAID | END 2018-04-05 08:01 | disposition home or self-care (01) | LOC: LAB.N 08:00 | PROVIDERS: ATTEND Nurse Practitioner Gerontology | DX: I48.91 Unspecified atrial fibrillation (principal) | CPT/HCPCS: 85610 ==

== ENCOUNTER 2018-04-23 09:46 | Outpatient (CLI) | payer MEDICARE, MEDICAID ==
[2018-04-23 12:29] LABS: INR 3.7 (0.8-1.2); PT - PROTHROMBIN TIME 40.1 secs (9.9-12.6)
== END 2018-04-23 09:47 | disposition home or self-care (01) ==
LOC: LAB.N 09:46
PROVIDERS: ATTEND Nurse Practitioner Gerontology
DX: I48.91 Unspecified atrial fibrillation (principal)
CPT/HCPCS: 85610

== ENCOUNTER 2018-05-06 13:37 | Outpatient (CLI) | payer MEDICARE, MEDICAID | END 2018-05-06 13:38 | disposition home or self-care (01) | LOC: LAB.N 13:37 | PROVIDERS: ATTEND Nurse Practitioner Gerontology | DX: I48.91 Unspecified atrial fibrillation (principal) | CPT/HCPCS: 85610 ==

== ENCOUNTER 2018-05-18 13:20 | Outpatient (CLI) | payer MEDICARE, MEDICAID | END 2018-05-18 13:21 | disposition home or self-care (01) | LOC: LAB.N 13:20 | PROVIDERS: ATTEND Nurse Practitioner Gerontology | DX: I48.91 Unspecified atrial fibrillation (principal) | CPT/HCPCS: 85610 ==

== ENCOUNTER 2018-05-30 13:11 | Outpatient (CLI) | payer MEDICARE, MEDICAID | END 2018-05-30 13:12 | disposition critical access hospital (66) | LOC: EMS 13:11 | PROVIDERS: ATTEND Surgery | DX: R53.1 Weakness (principal); R50.9 Fever, unspecified | CPT/HCPCS: A0425; A0427 ==

== ENCOUNTER 2018-05-30 13:25 | Emergency (ER) | payer MEDICARE, MEDICAID ==
[2018-05-30] MEDS ORDERED: SODIUM CHLORIDE 0.9% 1,000 ML IV ONE ×3 (13:31→16:40)
[2018-05-30] MEDS ORDERED: PIPERACILLIN/TAZOBACTAM 4.5 GM in SODIUM CHLORIDE 0.9% MINIBAG 100 ML IV STA (13:32)
--- NOTE | 2018-05-30 13:35 | ED Physician Documentation ---
History of Present Illness - Stated complaint Stated Complaint: SEPTIC - Chief complaint Chief Complaint: Critical Care - History obtained from History obtained from: Patient, EMS - History of Present Illness Timing: Yesterday (47-year-old gentleman on peritoneal dialysis, also anticoagulated for history of A. fib presents with fevers chills and cough since yesterday with progressive illness. Today he was hypotensive in route. He does not urinate at all. He got a normal amount of his peritoneal dialysis catheter today.) Review of Systems Ten Systems: 10 systems reviewed and negative Constitutional: reports: Fever, Chills, Fatigue Respiratory: reports: Cough. denies: Dyspnea GI: denies: Abdominal Pain, Nausea, Vomiting, Diarrhea PD PAST MEDICAL HISTORY - Past Medical History Cardiovascular: Hypertension, High cholesterol, Peripheral Vascular Disease, Valve disorder, Other Respiratory: None Neuro: Peripheral neuropathy Endocrine/Autoimmune: Type 2 diabetes GI: None : Dialysis, Renal insuffiency HEENT: Chronic vision loss Psych: None Musculoskeletal: None Derm: None - Past Surgical History Past Surgical History: Yes Ortho: Other - Present Medications Home Medications: Ambulatory Orders Medication Instructions Recorded Confirmed Cinacalcet HCl [Sensipar] 60 mg PO DAILY 09/15/14 06/08/15 Insulin Glargine [Lantus] 30 unit SUBQ DAILY 09/15/14 06/08/15 Paricalcitol [Zemplar] 16 mcg PO DAILY 09/15/14 06/08/15 Sevelamer Carbonate [Renvela] 1,600 mg PO TID 09/15/14 06/08/15 Insulin Glulisine [Apidra] 10 units SQ AC 03/13/15 06/08/15 - Allergies Allergies/Adverse Reactions: Allergies Allergy/AdvReac Type Severity Reaction Status Date / Time No Known Drug Allergies Allergy Verified 01/31/18 14:23 - Social History Does the pt smoke?: No Smoking Status: Never smoker Does the pt drink ETOH?: No Does the pt have substance abuse?: No - Family History Family history: reports: Non contributory - Immunizations Immunizations are current?: Yes - POLST Patient has POLST: No PD ED PE NORMAL - Vitals Vital signs reviewed: Yes - General General: Alert and oriented X 3 (He is sleepy but easily arousable and appropriately answers questions.), No acute distress - HEENT HEENT: PERRL, EOMI - Neck Neck: Supple, no meningeal sign, No bony TTP - Cardiac Cardiac: RRR, No murmur - Respiratory Respiratory: Other (Rhonchi R base) - Abdomen Abdomen: Soft, Non tender, Other (Peritoneal dialysis catheter in the right abdomen, umbilical hernia, no tenderness.) - Back Back: No CVA TTP, No spinal TTP - Extremities Extremities: Other (Brawny edema and venous stasis changes of both legs, there is a wound that is bleeding on the underside of the left fifth toe and a ulcer on the lateral side of the plantar surface of the right foot.) - Neuro Neuro: Alert and oriented X 3, Normal speech Results - Vitals Vitals: Vital Signs - 24 hr 05/30/18 05/30/18 05/30/18 13:25 13:35 13:38 Temperature 38 C H Heart Rate 92 93 Respiratory 34 H 33 H Rate Blood Pressure 93/49 L 85/37 L O2 Saturation 92 88 L 96 05/30/18 05/30/18 05/30/18 13:55 14:25 14:37 Temperature 39.3 C H Heart Rate 93 101 H 104 H Respiratory 27 H 32 H 21 Rate Blood Pressure 86/62 L 100/31 L 102/84 H O2 Saturation 100 99 2 L 05/30/18 05/30/18 05/30/18 15:05 15:14 15:23 Temperature Heart Rate 92 91 92 Respiratory 24 28 H 28 H Rate Blood Pressure 80/39 L 82/41 L 86/44 L O2 Saturation 99 100 98 05/30/18 05/30/18 05/30/18 15:34 15:47 15:56 Temperature 38.1 C H Heart Rate 91 91 91 Respiratory 31 H 24 30 H Rate Blood Pressure 82/46 L 91/51 L 96/94 H O2 Saturation 97 99 99 05/30/18 05/30/18 05/30/18 16:00 16:10 16:20 Temperature Heart Rate Respiratory Rate Blood Pressure 95/54 L 85/47 L 93/46 L O2 Saturation 05/30/18 05/30/18 05/30/18 16:30 16:40 17:12 Temperature Heart Rate 89 99 88 Respiratory 27 H 29 H 28 H Rate Blood Pressure 94/48 L 87/50 L 80/48 L O2 Saturation 99 99 100 05/30/18 05/30/18 17:15 17:44 Temperature Heart Rate 89 88 Respiratory 21 25 H Rate Blood Pressure 91/51 L 92/51 L O2 Saturation 100 96 Oxygen O2 Source Nasal cannula - EKG (time done) 1500 Rate: Rate (enter#) (91) Rhythm: NSR [place]: Normal Intervals: Normal GA QRS: Low voltage Ischemia: Non specific changes (Mild inferior ST depression, no ST elevation.) Computer interpretation: Agree with computer - Labs Labs: Microbiology 05/30/18 14:40 Body Fluid Culture - Preliminary Peritoneal Fluid Laboratory Tests 05/30/18 05/30/18 05/30/18 13:50 14:18 14:18 WBC 17.1 H RBC 2.79 L Hgb 9.8 L Hct 28.8 L MCV 103.3 H MCH 35.2 H MCHC 34.1 RDW 18.2 H Plt Count 142 MPV 7.7 Neut # (Auto) 14.9 H Lymph # (Auto) 0.8 L [place] # (Auto) 1.4 H Eos # (Auto) 0.0 Baso # (Auto) 0.1 Absolute Nucleated RBC 0.00 Nucleated RBC % 0.0 Manual Slide Review Indicated RBC Morph Micro Appear 3+ ANISOCYTOSIS PT INR Sodium 128 L Potassium 3.3 L Chloride 91 L Carbon Dioxide 19 L Anion Gap 18.0 H BUN 49 H Creatinine 10.9 H* Estimated GFR (MDRD) 5 L Glucose 190 H Lactic Acid Calcium 8.0 L Total Bilirubin 1.7 H AST 25 ALT 12 Alkaline Phosphatase 125 H Total Creatine Kinase 159 CK-MB (CK-2) Troponin I Total Protein 8.4 H Albumin 2.8 L Globulin 5.6 H Albumin/Globulin Ratio 0.5 L Lipase 16 L Fluid Source Fluid Color Fluid Clarity Fluid WBC Fluid RBC Fluid Neutrophils % Fluid Lymphocytes % Fluid Monocytes % Fld Mesothelial Cell % Influenza A (Rapid) Negative Influenza B (Rapid) Negative 05/30/18 05/30/18 05/30/18 14:18 14:18 14:18 WBC RBC Hgb Hct MCV MCH MCHC RDW Plt Count MPV Neut # (Auto) Lymph # (Auto) [place] # (Auto) Eos # (Auto) Baso # (Auto) Absolute Nucleated RBC Nucleated RBC % Manual Slide Review RBC Morph Micro Appear PT 35.9 H INR 3.2 H Sodium Potassium Chloride Carbon Dioxide Anion Gap BUN Creatinine Estimated GFR (MDRD) Glucose Lactic Acid 4.8 H* Calcium Total Bilirubin AST ALT Alkaline Phosphatase Total Creatine Kinase CK-MB (CK-2) 6.7 H Troponin I 1.43 H* Total Protein Albumin Globulin Albumin/Globulin Ratio Lipase Fluid Source Fluid Color Fluid Clarity Fluid WBC Fluid RBC Fluid Neutrophils % Fluid Lymphocytes % Fluid Monocytes % Fld Mesothelial Cell % Influenza A (Rapid) Influenza B (Rapid) 05/30/18 05/30/18 05/30/18 14:40 15:45 17:30 WBC RBC Hgb Hct MCV MCH MCHC RDW Plt Count MPV Neut # (Auto) Lymph # (Auto) [place] # (Auto) Eos # (Auto) Baso # (Auto) Absolute Nucleated RBC Nucleated RBC % Manual Slide Review RBC Morph Micro Appear PT INR Sodium Potassium Chloride Carbon Dioxide Anion Gap BUN Creatinine Estimated GFR (MDRD) Glucose Lactic Acid 5.0 H* 4.4 H* Calcium Total Bilirubin AST ALT Alkaline Phosphatase Total Creatine Kinase CK-MB (CK-2) Troponin I Total Protein Albumin Globulin Albumin/Globulin Ratio Lipase Fluid Source PERITONEAL Fluid Color STRAW Fluid Clarity HAZY Fluid WBC 54 Fluid RBC 120 Fluid Neutrophils % 4 Fluid Lymphocytes % 20 Fluid Monocytes % 76 Fld Mesothelial Cell % 0 Influenza A (Rapid) Influenza B (Rapid) - Rads (name of study) 1v chest Radiology: EMP read contemporaneously (Mild bilateral atelectasis on hypoventilatory image with mediastinal lipomatosis.) PD MEDICAL DECISION MAKING - ED course ED course: 47-year-old gentleman on peritoneal dialysis presents with sepsis. Low suspicion for peritonitis given lack of tenderness. High suspicion for pneumonia given clinical examination and hypoxemia in route although this is not corroborated at least on the initial chest x-ray. He was cultured up and given Zosyn followed by vancomycin. Diagnostic aspirate off of his peritoneal dialysis catheter was sent to the lab as well. I discussed the case briefly with Dr. Moore the hospitalist here who felt like he would need transfer to a higher level of care with nephrology backup. [place] was called for potential transfer at 1443. He was given a total dose of 4000 mL of crystalloid, 2 L of normal saline, 2 L of lactated Ringer's. Troponin noted, EKG not super ischemic and there is no chest pain. Presumed type II non-STEMI from stress of sepsis. Spoke with the mixing plant operator in [place], Dr. Steward. She feels he is somewhat stable for the ICU and would like to see a second lactate and how it is trending to decide on floor versus ICU disposition. This is ordered and I will call them back when that is done. Repeat lactate stable to slightly up trending at 5.0, [facility] was called back to discuss that he probably needs to be in ICU level of care. They agreed and he was accepted to Dr. Steward service. Cobras were completed. Of note his blood pressure remained borderline but never required pressors here in the emergency department. - Critical Care Time(min): 45 Time Includes: Direct patient care, Review records, Reassess patient, Document care, Coordinate care, Medical consult, Family consult for tx dec Data interpretation: Labs, Pulse ox, CXR Procedures included in critical care time: Peripheral IV Departure - Departure Disposition: 02 Transfer Acute Care Hosp Clinical Impression: Peritoneal dialysis catheter in place, Renal failure, Septic shock, NSTEMI (non-ST elevated myocardial infarction) Condition: Critical Discharge Date/Time: 05/30/18 17:56
--- NOTE | 2018-05-30 14:17 | XRAY Report ---
Reason: chest pain Procedure Date: 05/30/2018 Accession Number: [id number] / [id number] Procedure: XR - Chest 1 View X-Ray CPT Code: 63414 FULL RESULT: EXAM: CHEST RADIOGRAPHY EXAM DATE: 05/30/2018 02:01 PM. CLINICAL HISTORY: Chest pain. COMPARISON: 01/30/2018, 01/30/2018 10/19/2007. TECHNIQUE: 1 view. FINDINGS: Lungs/Pleura: Small lung volumes, likely due to shallow inspiratory effort, results in mild bilateral atelectasis and pulmonary vasculature congestion. No pleural effusion or pneumothorax Mediastinum: Stable apparent mild mediastinal widening, most consistent with portable technique and mediastinal lipomatosis. Other: None. IMPRESSION: Mild bilateral atelectasis on hypoventilatory image. Mediastinal lipomatosis. RADIA
[2018-05-30 14:25] LABS: BASOPHILS # (AUTO) 0.1 10^3/uL (0.0-0.1); BASOPHILS % (AUTO) 0.4 %; HGB - HEMOGLOBIN 9.8 g/dL (14.0-18.0); LYMPHOCYTES # (AUTO) 0.8 10^3/uL (1.5-3.5); LYMPHOCYTES % (AUTO) 4.4 %; MEAN CORPUSCULAR HEMOGLOBIN 35.2 pg (27.0-31.0); MEAN CORPUSCULAR HGB CONC 34.1 g/dL (32.0-36.0); MEAN CORPUSCULAR VOLUME 103.3 fL (80.0-94.0); MEAN PLATELET VOLUME 7.7 fL (7.4-11.4); MONOCYTES # (AUTO) 1.4 10^3/uL (0.0-1.0); MONOCYTES % (AUTO) 8.1 %; NEUTROPHILS # (AUTO) 14.9 10^3/uL (1.5-6.6); NEUTROPHILS % (AUTO) 87.1 %; PLT - PLATELET COUNT 142 10^3/uL (130-450); RED BLOOD COUNT 2.79 10^6/uL (4.70-6.10); RED CELL DISTRIBUTION WIDTH 18.2 % (12.0-15.0); WHITE BLOOD COUNT 17.1 x10^3/uL (4.8-10.8)
[2018-05-30 14:27] LABS: INR 3.2 (0.8-1.2); PT - PROTHROMBIN TIME 35.9 secs (9.9-12.6)
[2018-05-30] MEDS ORDERED: VANCOMYCIN INJ 2 GM in SODIUM CHLORIDE 0.9% 500 ML IV STA (14:33)
[2018-05-30 14:40] LABS: ALBUMIN 2.8 g/dL (3.2-5.5); ALBUMIN/GLOBULIN RATIO 0.5 (1.0-2.2); BILIRUBIN,TOTAL 1.7 mg/dL (0.2-1.0); TOTAL PROTEIN 8.4 g/dL (6.7-8.2)
[2018-05-30] MEDS ORDERED: ACETAMINOPHEN 500 MG TABLET PO STA (14:41)
[2018-05-30] MEDS ORDERED: LACTATED RINGERS 2,000 ML IV STA (14:44)
[2018-05-30 14:46] LABS: CREATININE 10.9 mg/dL (0.6-1.2)
[2018-05-30 14:47] LABS: CREATINE KINASE MB 6.7 ng/mL (0.6-6.3)
[2018-05-30 14:50] LABS: TROPONIN I 1.43 ng/mL (<0.49)
[2018-05-30 14:56] LABS: RBC MORPHOLOGY (MULTIPLE) 3+ ANISOCYTOSIS (NORMAL)
[2018-05-30 15:45] LABS: BF COLOR STRAW; BF SOURCE PERITONEAL; CC,BF RBC 120 /mm^3
[2018-05-30 16:56] LABS: LYMPHOCYTES %,BODY FLUID 20; MESOTHELIAL %, BF 0 %; MONOCYTES %,BODY FLUID 76 %
[2018-05-30 17:44] VITALS: BP 92/51
== END 2018-05-30 17:56 | disposition short-term general hospital (02) ==
LOC: EDSEX → EDUNIT# → ED 13:25
DX: A41.9 Sepsis, unspecified organism (principal); R65.21 Severe sepsis with septic shock; I21.3 ST elevation (STEMI) myocardial infarction of unspecified site; E11.22 Type 2 diabetes mellitus with diabetic chronic kidney disease; N18.6 End stage renal disease; Z99.2 Dependence on renal dialysis; E11.42 Type 2 diabetes mellitus with diabetic polyneuropathy; Z79.4 Long term (current) use of insulin; J98.11 Atelectasis; E88.2 Lipomatosis, not elsewhere classified; I10 Essential (primary) hypertension
CPT/HCPCS: 36415; 71045; 80053; 82550; 82553; 83605; 83690; 84484; 85025; 85610; 87040; 87070; 87205; 87275; 87276; 89051; 93005; 96361; 96365; 96366; 96368; 99291; A9270; J3370; J7120; 87181; 99285

== ENCOUNTER 2018-05-30 17:57 | Outpatient (CLI) | payer MEDICARE, MEDICAID | END 2018-05-30 17:58 | disposition short-term general hospital (02) | LOC: EMS 17:57 | PROVIDERS: ATTEND Surgery | DX: R53.81 Other malaise (principal); R50.9 Fever, unspecified; I95.9 Hypotension, unspecified; N18.6 End stage renal disease | CPT/HCPCS: A0170; A0425; A0426 ==

== ENCOUNTER 2018-10-08 09:44 | Outpatient (CLI) | payer MEDICARE, MEDICAID | END 2018-10-08 09:45 | disposition home or self-care (01) | LOC: LAB.N 09:44 | PROVIDERS: ATTEND Nurse Practitioner Gerontology | DX: I48.91 Unspecified atrial fibrillation (principal) | CPT/HCPCS: 85610 ==

== ENCOUNTER 2018-11-11 18:07 | Emergency (ER) | payer MEDICARE, MEDICAID ==
[2018-11-11 18:17] VITALS: BP 146/74
[2018-11-11 18:36] LABS: BASOPHILS # (AUTO) 0.1 10^3/uL (0.0-0.1); BASOPHILS % (AUTO) 1.4 %; EOSINOPHILS # (AUTO) 0.2 10^3/uL (0.0-0.7); EOSINOPHILS % (AUTO) 4.8 %; HGB - HEMOGLOBIN 10.7 g/dL (14.0-18.0); LYMPHOCYTES # (AUTO) 1.1 10^3/uL (1.5-3.5); LYMPHOCYTES % (AUTO) 27.8 %; MEAN CORPUSCULAR HEMOGLOBIN 30.7 pg (27.0-31.0); MEAN CORPUSCULAR VOLUME 95.8 fL (80.0-94.0); MONOCYTES # (AUTO) 0.3 10^3/uL (0.0-1.0); MONOCYTES % (AUTO) 7.3 %; NEUTROPHILS # (AUTO) 2.2 10^3/uL (1.5-6.6); NEUTROPHILS % (AUTO) 58.7 %; PLT - PLATELET COUNT 116 10^3/uL (130-450); RED BLOOD COUNT 3.49 10^6/uL (4.70-6.10); RED CELL DISTRIBUTION WIDTH 17.1 % (12.0-15.0); WHITE BLOOD COUNT 3.8 x10^3/uL (4.8-10.8)
[2018-11-11 18:52] LABS: ALBUMIN 3.1 g/dL (3.2-5.5); ALBUMIN/GLOBULIN RATIO 0.6 (1.0-2.2); BILIRUBIN,TOTAL 0.8 mg/dL (0.2-1.0); CALCIUM 8.3 mg/dL (8.5-10.3); TOTAL PROTEIN 8.1 g/dL (6.7-8.2)
[2018-11-11 18:54] LABS: CREATININE 11.7 mg/dL (0.6-1.2)
--- NOTE | 2018-11-11 19:29 | ED Physician Documentation ---
PD HPI NVD - Stated complaint Stated Complaint: LOW POTASSIUM PER DOC - Chief complaint Chief Complaint: General - History obtained from History obtained from: Patient - History of Present Illness Timing - onset: How many days ago (he had blood drawn outpatient 3 days ago (Thursday) and the results reviewed yesterday showed high potassium of 7.0. Provider office called patient and directed him to come into the ER. He has been doing dialysis at home regularly and is feeling okay. He did not feel he needed to come to ER. However the Nephrology office sent deputy to his home for welfare check and to encourage him to come, so he is here today. Again he says he is feeling okay and doing regular dialysis at home.) Associated symptoms: No: Fever, Abdominal pain, Chest pain, Dizzy, Near syncope / syncope Contributing factors: No: Sick contact Recently seen: Clinic (with outpatient labs done 3 days ago) Review of Systems Constitutional: denies: Fever Nose: denies: Rhinorrhea / runny nose, Congestion Throat: denies: Sore throat Cardiac: denies: Chest pain / pressure Respiratory: denies: Cough GI: denies: Abdominal Pain, Vomiting, Diarrhea, Bloody / black stool Skin: denies: Rash, Lesions Neurologic: denies: Altered mental status, Headache PD PAST MEDICAL HISTORY - Past Medical History Past Medical History: Yes Cardiovascular: Hypertension, High cholesterol, Peripheral Vascular Disease, Valve disorder, Other Respiratory: None Neuro: Peripheral neuropathy Endocrine/Autoimmune: Type 2 diabetes GI: None : Dialysis, Renal insuffiency HEENT: Chronic vision loss Psych: None Musculoskeletal: None Derm: None - Past Surgical History Past Surgical History: Yes Ortho: Amputation, Other - Present Medications Home Medications: Ambulatory Orders Medication Instructions Recorded Confirmed Cinacalcet HCl [Sensipar] 60 mg PO DAILY 09/15/14 11/11/18 Insulin Glargine [Lantus] 15 unit SUBQ DAILY 09/15/14 11/11/18 Paricalcitol [Zemplar] 16 mcg PO DAILY 09/15/14 11/11/18 Sevelamer Carbonate [Renvela] 1,600 mg PO TID 09/15/14 11/11/18 Insulin Glulisine [Apidra] 10 units SQ AC 03/13/15 11/11/18 Warfarin Sodium 2.5 mg PO DAILY 11/11/18 11/11/18 - Allergies Allergies/Adverse Reactions: Allergies Allergy/AdvReac Type Severity Reaction Status Date / Time No Known Drug Allergies Allergy Verified 11/11/18 18:12 - Social History Does the pt smoke?: No Smoking Status: Never smoker Does the pt drink ETOH?: No Does the pt have substance abuse?: No - Immunizations Immunizations are current?: Yes - POLST Patient has POLST: No PD ED PE NORMAL - Vitals Vital signs reviewed: Yes - General General: Alert and oriented X 3, No acute distress, Well developed/nourished (torso. Prior amps noted. ) - HEENT HEENT: Atraumatic, Pharynx benign - Neck Neck: Supple, no meningeal sign, No adenopathy - Cardiac Cardiac: RRR, No murmur - Respiratory Respiratory: Clear bilaterally - Abdomen Abdomen: Soft, Non tender, Other (no redness around dialysis line site.) - Derm Derm: Normal color, Warm and dry Results - Vitals Vitals: Vital Signs - 24 hr 11/11/18 18:13 Temperature 36.5 C Heart Rate 81 Respiratory 20 Rate Blood Pressure 146/74 H O2 Saturation 100 Oxygen O2 Source Nasal cannula - Labs Labs: Laboratory Tests 11/11/18 11/11/18 18:33 18:33 WBC 3.8 L RBC 3.49 L Hgb 10.7 L Hct 33.4 L MCV 95.8 H MCH 30.7 MCHC 32.0 RDW 17.1 H Plt Count 116 L MPV 8.0 Neut # (Auto) 2.2 Lymph # (Auto) 1.1 L [place] # (Auto) 0.3 Eos # (Auto) 0.2 Baso # (Auto) 0.1 Absolute Nucleated RBC 0.01 Nucleated RBC % 0.1 Sodium 134 L Potassium 5.1 H Chloride 93 L Carbon Dioxide 25 Anion Gap 16.0 H BUN 89 H* Creatinine 11.7 H* Estimated GFR (MDRD) 5 L Glucose 189 H Calcium 8.3 L Total Bilirubin 0.8 AST 29 ALT 47 Alkaline Phosphatase 139 H Total Protein 8.1 Albumin 3.1 L Globulin 5.0 H Albumin/Globulin Ratio 0.6 L Lipase 33 PD MEDICAL DECISION MAKING - ED course Complexity details: considered differential (labs done here showing potassium 5.1. Expectedly high Creatinine. He seems okay. Labs from 3 days ago had high K, but no obvious reason such as concurrent illness, dehydration, etc. ), d/w patient Departure - Departure Disposition: 01 Home, Self Care Clinical Impression: Electrolyte abnormality Chronic renal failure Qualifiers: Chronic kidney disease stage: unspecified stage Qualified Code(s): N18.9 - Chronic kidney disease, unspecified Condition: Stable Record reviewed to determine appropriate education?: Yes Follow-Up: Tiffanie Diehl ARNP [Primary Care Provider] - Comments: Continue usual home dialysis and medications. Follow-up with your primary care or nephrology early next week. Discharge Date/Time: 11/11/18 19:44
== END 2018-11-11 19:44 | disposition home or self-care (01) ==
LOC: ED 18:07
DX: E87.8 Other disorders of electrolyte and fluid balance, not elsewhere classified (principal); I12.9 Hypertensive chronic kidney disease with stage 1 through stage 4 chronic kidney disease, or unspecified chronic kidney disease; E11.22 Type 2 diabetes mellitus with diabetic chronic kidney disease; N18.9 Chronic kidney disease, unspecified; E11.51 Type 2 diabetes mellitus with diabetic peripheral angiopathy without gangrene; Z79.4 Long term (current) use of insulin; Z99.2 Dependence on renal dialysis; Z79.01 Long term (current) use of anticoagulants
CPT/HCPCS: 36415; 80053; 83690; 85025; 99282; 99283

== ENCOUNTER 2018-12-01 10:21 | Outpatient (CLI) | payer MEDICARE, MEDICAID | END 2018-12-01 23:59 | disposition home or self-care (01) | LOC: LAB.N 10:21 | PROVIDERS: ATTEND Nurse Practitioner Gerontology | DX: I48.91 Unspecified atrial fibrillation (principal) | CPT/HCPCS: 85610 ==

== ENCOUNTER 2018-12-08 08:59 | Outpatient (CLI) | payer MEDICARE, MEDICAID | END 2018-12-08 23:59 | disposition home or self-care (01) | LOC: LAB.N 08:59 | PROVIDERS: ATTEND Nurse Practitioner Gerontology | DX: I48.91 Unspecified atrial fibrillation (principal) | CPT/HCPCS: 85610 ==

== ENCOUNTER 2018-12-17 10:36 | Outpatient (CLI) | payer MEDICARE, MEDICAID | END 2018-12-17 23:59 | disposition home or self-care (01) | LOC: LAB.N 10:36 | PROVIDERS: ATTEND Nurse Practitioner Gerontology | DX: I48.91 Unspecified atrial fibrillation (principal) | CPT/HCPCS: 85610 ==

== ENCOUNTER 2018-12-31 08:00 | Outpatient (CLI) | payer MEDICARE, MEDICAID | END 2018-12-31 23:59 | disposition home or self-care (01) | LOC: LAB.N 08:00 | PROVIDERS: ATTEND Nurse Practitioner Gerontology | DX: I48.91 Unspecified atrial fibrillation (principal) | CPT/HCPCS: 85610 ==

== ENCOUNTER 2019-01-14 08:00 | Outpatient (CLI) | payer MEDICARE, MEDICAID | END 2019-01-14 23:59 | disposition home or self-care (01) | LOC: LAB.N 08:00 | PROVIDERS: ATTEND Nurse Practitioner Gerontology | DX: I48.91 Unspecified atrial fibrillation (principal) | CPT/HCPCS: 85610 ==

== ENCOUNTER 2019-01-21 12:13 | Outpatient (CLI) | payer MEDICARE, MEDICAID | END 2019-01-21 23:59 | disposition home or self-care (01) | LOC: LAB.N 12:13 | PROVIDERS: ATTEND Nurse Practitioner Gerontology | DX: I48.91 Unspecified atrial fibrillation (principal) | CPT/HCPCS: 85610 ==

== ENCOUNTER 2019-02-22 10:07 | Outpatient (CLI) | payer MEDICARE, MEDICAID | END 2019-02-22 23:59 | disposition home or self-care (01) | LOC: LAB.N 10:07 | PROVIDERS: ATTEND Nurse Practitioner Gerontology | DX: I48.91 Unspecified atrial fibrillation (principal) | CPT/HCPCS: 85610 ==

== ENCOUNTER 2019-06-09 10:28 | Emergency (ER) | payer MEDICARE, MEDICAID ==
[2019-06-09] MEDS ORDERED: ATROPINE 8 MG/20 ML VIAL IVP ONE (10:45)
[2019-06-09] MEDS ORDERED: SODIUM CHLORIDE 0.9% 1,000 ML IV ONE ×2 (10:45→16:05)
--- NOTE | 2019-06-09 10:46 | ED Physician Documentation ---
History of Present Illness - Stated complaint Stated Complaint: LOW BLOOD PRESSURE - Chief complaint Chief Complaint: Cardiac - History obtained from History obtained from: Patient - History of Present Illness Timing: How many days ago (2) Severity Comments: moderate Quality: lightheaded Radiates to: none Improved by: nothing Worsened by: walking around Associated symptoms: denies cp, sob, abdominal pain, nausea, vomiting. reports some fatigue - Treatment prior to arrival Treatment prior to arrival: none - Additonal information Additional information: Denies fever Pt has R eyelid swelling and redness but denies pain and reports he noticed the eye redness a couple of days ago. Denies back pain, leg pain, groin pain, urinary symptoms - does not produce urine. Review of Systems Ten Systems: 10 systems reviewed and negative Constitutional: reports: Fatigue. denies: Fever, Chills Eyes: reports: Reviewed and negative Ears: reports: Reviewed and negative Cardiac: denies: Chest pain / pressure, Palpitations, Pedal edema, Calf pain Respiratory: denies: Dyspnea, Cough GI: denies: Abdominal Pain, Nausea, Vomiting, Diarrhea : reports: Reviewed and negative Skin: reports: Reviewed and negative Musculoskeletal: reports: Reviewed and negative. denies: Extremity pain, Extremity swelling Neurologic: reports: Other (feels lightheaded). denies: Generalized weakness, Focal weakness, Numbness, Difficulty speaking, Near syncope, Syncope, Seizure, Confused, Altered mental status Endocrine: reports: Reviewed and negative Immunocompromised: reports: Other (diabetic) PD PAST MEDICAL HISTORY - Past Medical History Past Medical History: Yes Cardiovascular: Hypertension, High cholesterol, Peripheral Vascular Disease, Valve disorder, Other Respiratory: None Neuro: Peripheral neuropathy Endocrine/Autoimmune: Type 2 diabetes GI: None : Dialysis, Renal insuffiency HEENT: Chronic vision loss Psych: None Musculoskeletal: None Derm: None - Past Surgical History Past Surgical History: Yes Ortho: Amputation, Other - Present Medications Home Medications: Ambulatory Orders Medication Instructions Recorded Confirmed Cinacalcet HCl [Sensipar] 60 mg PO DAILY 09/15/14 06/09/19 Insulin Glargine [Lantus] 15 unit SUBQ DAILY 09/15/14 06/09/19 Paricalcitol [Zemplar] 16 mcg PO DAILY 09/15/14 06/09/19 Sevelamer Carbonate [Renvela] 1,600 mg PO TID 09/15/14 06/09/19 Insulin Glulisine [Apidra] 10 units SQ AC 03/13/15 06/09/19 Warfarin Sodium 2.5 mg PO DAILY 11/11/18 06/09/19 - Allergies Allergies/Adverse Reactions: Allergies Allergy/AdvReac Type Severity Reaction Status Date / Time No Known Drug Allergies Allergy Verified 11/11/18 18:12 - Social History Does the pt smoke?: No Smoking Status: Never smoker Does the pt drink ETOH?: No Does the pt have substance abuse?: No - Immunizations Immunizations are current?: Yes - POLST Patient has POLST: No PD ED PE NORMAL - Vitals Vital signs reviewed: Yes - General General: Alert and oriented X 3, No acute distress, Well developed/nourished, Other (obese) - HEENT HEENT: Atraumatic, Moist mucous membranes, Pharynx benign - Neck Neck: Supple, no meningeal sign, No JVD - Cardiac Cardiac: No murmur, No gallop, No rub, Other (bradycardia, irregular rate ) - Respiratory Respiratory: No respiratory distress, Clear bilaterally - Abdomen Abdomen: Soft, Non tender, Non distended, Other (peritoneal dialysis catheter in place, clean dry and intact) - Male Male : Deferred - Rectal Rectal: Deferred - Derm Derm: Normal color, Warm and dry, No rash, Other (no pallor ) - Extremities Extremities: No deformity, No tenderness to palpate, Normal ROM s pain, No calf tenderness / cord, Other (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 No: EOM palsy, Eyelid injury - Cardiac Cardiac: Sam, Irregularly irregular, Other (1+ pulses throughout ) - Respiratory Respiratory: Clear to ausultation errol - Abdomen Abdomen: Other (peritoneal dialysis catheter in place with skin clean dry and intact ). No: Distended, Tender to palpation - Extremities Extremities: Left leg (nonpitting edema, nontender ) - GCS Eye Opening: Spontaneous Motor: Obeys Commands Verbal: Oriented Total: 15 Results - Vitals Vitals: Vital Signs - 24 hr 11/14/19 11/14/19 11/14/19 10:30 10:39 10:43 Temperature 37.2 C Heart Rate 40 L 69 68 Respiratory 18 16 18 Rate Blood Pressure 107/49 L 86/48 L 88/43 L Blood Pressure [Left] O2 Saturation 93 98 100 06/09/19 06/09/19 06/09/19 10:52 10:59 11:04 Temperature Heart Rate 48 L 44 L Respiratory 17 18 Rate Blood Pressure 85/48 L 76/28 L Blood Pressure 82/31 L [Left] O2 Saturation 100 100 06/09/19 06/09/19 06/09/19 11:26 11:51 12:16 Temperature Heart Rate 52 L 69 69 Respiratory 20 17 22 Rate Blood Pressure 82/73 L 82/73 L 87/58 L Blood Pressure [Left] O2 Saturation 100 98 100 06/09/19 06/09/19 06/09/19 12:30 14:08 14:54 Temperature 36.6 C Heart Rate 62 68 50 L Respiratory 20 12 27 H Rate Blood Pressure 95/59 L 106/63 65/39 L Blood Pressure [Left] O2 Saturation 100 99 99 06/09/19 06/09/19 16:18 16:43 Temperature 36.6 C Heart Rate 54 L 52 L Respiratory 22 16 Rate Blood Pressure 104/48 L 113/37 L Blood Pressure [Left] O2 Saturation 99 99 Oxygen O2 Source Room air - EKG (time done) 10:44 Rate: Rate (enter#) (60) Rhythm: Atrial fibrillation, Other (occasional PVC ) [place]: Normal Intervals: Prolonged QT Ischemia: Normal ST segments Computer interpretation: Agree with computer - Labs Labs: Laboratory Tests 06/09/19 06/09/19 06/09/19 10:50 10:50 11:47 WBC 6.5 RBC 3.32 L Hgb 11.8 L Hct 37.0 L MCV 111.4 H MCH 35.5 H MCHC 31.9 L RDW 19.3 H Plt Count 127 L MPV 10.3 Neut # (Auto) 4.1 Lymph # (Auto) 1.3 L [place] # (Auto) 0.7 Eos # (Auto) 0.2 Baso # (Auto) 0.1 Absolute Nucleated RBC 0.02 Nucleated RBC % 0.3 Manual Slide Review Indicated Platelet Estimate NORMAL (130-450,000) Platelet Morphology NORMAL APPEARANCE RBC Morph Micro Appear 1+ POLYCHROMASIA PT 67.4 H INR 6.6 H* Sodium Potassium Chloride Carbon Dioxide Anion Gap BUN Creatinine Estimated GFR (MDRD) Glucose Lactic Acid 1.8 Calcium Magnesium Total Bilirubin AST ALT Alkaline Phosphatase Troponin I High Sens Total Protein Albumin Globulin Albumin/Globulin Ratio Lipase Slides for Path Review Indicated 06/09/19 06/09/19 11:47 11:47 WBC RBC Hgb Hct MCV MCH MCHC RDW Plt Count MPV Neut # (Auto) Lymph # (Auto) [place] # (Auto) Eos # (Auto) Baso # (Auto) Absolute Nucleated RBC Nucleated RBC % Manual Slide Review Platelet Estimate Platelet Morphology RBC Morph Micro Appear PT INR Sodium 133 L Potassium 4.0 Chloride 95 L Carbon Dioxide 23 Anion Gap 15.0 H BUN 46 H Creatinine 9.9 H* Estimated GFR (MDRD) 6 L Glucose 136 H Lactic Acid Calcium 8.2 L Magnesium 1.9 Total Bilirubin 1.0 AST 12 ALT 12 Alkaline Phosphatase 79 Troponin I High Sens 71.0 H* Total Protein 8.2 Albumin 3.1 L Globulin 5.1 H Albumin/Globulin Ratio 0.6 L Lipase 25 Slides for Path Review - Rads (name of study) CT orbits Radiology: Final report received, See rad report (concerning for preseptal and retroorbital cellulitis ) PD MEDICAL DECISION MAKING - ED course Complexity details: reviewed results, re-evaluated patient, considered differential, d/w patient ED course: ddx- sepsis, cardiogenic shock, bradycardia, arrhythmia, GI bleed, R eye septal or preseptal cellulitis, pneumonia, UTI, dehydration, hypovolemia. 48 y/o M arrived today with hypotension reports 2 days of feeling lightheaded. Noted to be in afib, slow rate of 45 to 65 though his rate improved to the low 60s with monitoring. He was given one dose of atropine for bradycardia. His labs today are generally stable for him except an elevated INR of 6.6. But he has no rectal bleeding on exam and is guaiac negative. Blood cultures were sent and pt started on vancomycin and zosyn. His troponin is elevated to 70 but this may be due to his ESRD as he has no cp or sob. His hypotension improved here with some fluids. On reevaluation it is stable. Inititally planned to transfer pt to [facility] but did not realize they have no Physician Ophthalmologist and pt's exam is concerning for orbital cellulitis or preseptal cellulitis. CT orbits pending at that time. CT showed potentially retroorbital as well as preseptal cellulitis thus will need transfer for Ophthalmology eval. Discussed with [facility]'s Dr. Estevez who accepts pt for transfer. Given potential for deterioration and distance of travel will transfer via flight. - Critical Care Time(min): 30 Time Includes: Direct patient care, Review records, Reassess patient, Document care, Coordinate care, Medical consult Data interpretation: Labs, CXR, See progress note Departure - Departure Disposition: 02 Transfer Acute Care Hosp Clinical Impression: Supratherapeutic INR, Elevated troponin, ESRD (end stage renal disease) on dialysis, Orbital cellulitis on right Hypotension Qualifiers: Hypotension type: unspecified hypotension type Qualified Code(s): I95.9 - Hypotension, unspecified Condition: Fair Discharge Date/Time: 06/09/19 17:00
[2019-06-09] MEDS ORDERED: ATROPINE 0.4 MG/ML VIAL IVP STA (10:57)
[2019-06-09 10:59] LABS: BASOPHILS # (AUTO) 0.1 10^3/uL (0.0-0.1); BASOPHILS % (AUTO) 1.2 %; EOSINOPHILS # (AUTO) 0.2 10^3/uL (0.0-0.7); EOSINOPHILS % (AUTO) 3.7 %; HGB - HEMOGLOBIN 11.8 g/dL (14.0-18.0); LYMPHOCYTES # (AUTO) 1.3 10^3/uL (1.5-3.5); LYMPHOCYTES % (AUTO) 20.3 %; MEAN CORPUSCULAR HEMOGLOBIN 35.5 pg (27.0-31.0); MEAN CORPUSCULAR HGB CONC 31.9 g/dL (32.0-36.0); MEAN CORPUSCULAR VOLUME 111.4 fL (80.0-94.0); MEAN PLATELET VOLUME 10.3 fL (7.4-11.4); MONOCYTES # (AUTO) 0.7 10^3/uL (0.0-1.0); MONOCYTES % (AUTO) 11.2 %; NEUTROPHILS # (AUTO) 4.1 10^3/uL (1.5-6.6); NEUTROPHILS % (AUTO) 63.1 %; PLT - PLATELET COUNT 127 10^3/uL (130-450); RED BLOOD COUNT 3.32 10^6/uL (4.70-6.10); RED CELL DISTRIBUTION WIDTH 19.3 % (12.0-15.0); WHITE BLOOD COUNT 6.5 x10^3/uL (4.8-10.8)
[2019-06-09] MEDS ORDERED: ATROPINE 0.4 MG/ML VIAL IVP ONE (11:00)
[2019-06-09 11:32] LABS: PLATELET MORPHOLOGY NORMAL APPEARANCE (NORMAL)
[2019-06-09 11:33] LABS: PLATELET ESTIMATE, MANUAL NORMAL (130-450,000) (NORMAL)
[2019-06-09 12:05] LABS: PT - PROTHROMBIN TIME 67.4 secs (9.9-12.6)
[2019-06-09 12:11] LABS: ALBUMIN 3.1 g/dL (3.2-5.5); ALBUMIN/GLOBULIN RATIO 0.6 (1.0-2.2); CALCIUM 8.2 mg/dL (8.5-10.3); CREATININE 9.9 mg/dL (0.6-1.2); MAGNESIUM 1.9 mg/dL (1.7-2.8); TOTAL PROTEIN 8.2 g/dL (6.7-8.2)
[2019-06-09 12:12] LABS: INR 6.6 (0.8-1.2)
[2019-06-09] MEDS ORDERED: SODIUM CHLORIDE 0.9% 500 ML IV ONE (12:51)
[2019-06-09] MEDS ORDERED: PIPERACILLIN/TAZOBACTAM 3.375 GM in SODIUM CHLORIDE 0.9% MINIBAG 100 ML IV STA (13:18)
[2019-06-09] MEDS ORDERED: IOVERSOL 320 100 ML VIAL IVP ONE ×2 (13:24→14:41)
[2019-06-09] MEDS ORDERED: VANCOMYCIN INJ 1.75 GM in SODIUM CHLORIDE 0.9% 500 ML IV SCH (14:00)
--- NOTE | 2019-06-09 14:33 | CT Report ---
Reason: eval for orbital celluitis Procedure Date: 06/09/2019 Accession Number: [id number] / [id number] Procedure: CT - ORBITS W CPT Code: Final Report FULL RESULT: EXAM: CT ORBITS WITH CONTRAST EXAM DATE: 06/09/2019 02:00 PM. CLINICAL HISTORY: 48-year-old presenting with right periorbital soft tissue swelling and redness. Evaluate orbital pathology. COMPARISONS: None. TECHNIQUE: Thin-section axial images were acquired of the orbits after administration of intravenous contrast. Post-processing: Coronal and sagittal reformats. Other: None. IV contrast: 80 cc Optiray 320. In accordance with CT protocol optimization, one or more of the following dose reduction techniques were utilized for this exam: automated exposure control, adjustment of mA and/or KV based on patient size, or use of iterative reconstructive technique. FINDINGS: Soft Tissue: There is moderate volume soft tissue stranding and edema seen within the right periorbital soft tissues extending into the preseptal soft tissues of the right orbit. No rim-enhancing fluid collection seen. No soft tissue mass. The infratemporal fossa and parapharyngeal spaces are unremarkable. Orbits: The globes appear symmetric in size and positioning. There is minimal to mild soft tissue stranding seen within the extraconal and intraconal postseptal soft tissues. No extension to the optic nerve. The left orbit appears normal. Bones: No fracture or bone lesion. Temporomandibular Joints: The temporomandibular joints are symmetric and normally located. Sinuses: Minimal mucosal thickening in the maxillary sinuses. Small left sphenoid sinus mucosal retention cyst versus polyp with minimal mucosal thickening. Minimal to mild mucosal thickening of the ethmoid air cells. Mastoid air cells and middle ear cavities appear clear. Other: Vascular calcifications of the cavernous and supraclinoid ICA segments. Vascular calcification is of the intradural vertebral arteries. IMPRESSION: 1. CT findings concerning for moderate right periorbital cellulitis with no discrete rim-enhancing fluid collection seen. Inflammatory stranding extends into the preseptal soft tissues. There is minimal to mild extension of inflammatory soft tissues into the proximal extraconal/intraconal postseptal soft tissues concerning for retro-orbital cellulitis. No rim-enhancing fluid collection seen. No extension to the optic nerves. [facility]
--- NOTE | 2019-06-09 15:58 | XRAY Report ---
Reason: chest pain Procedure Date: 06/09/2019 Accession Number: [id number] / [id number] Procedure: XR - Chest 1 View X-Ray CPT Code: 82593 Final Report FULL RESULT: EXAM: CHEST RADIOGRAPHY EXAM DATE: 06/09/2019 10:52 AM. CLINICAL HISTORY: Chest pain. COMPARISON: CHEST 1 VIEW 05/30/2018 1:43 PM CHEST 2 VIEW PA/LAT 12/16/2016 10:40 AM CHEST 2 VIEW 01/30/2018 1:21 PM. TECHNIQUE: 1 view. FINDINGS: Lungs/Pleura: No focal opacities evident. No pleural effusion. No pneumothorax. Mediastinum: Stable prominence of cardiomediastinal silhouette, partially accentuated by projection. Atherosclerotic calcifications of aortic arch. Other: None. IMPRESSION: No acute cardiopulmonary process. [facility]
[2019-06-09 16:44] VITALS: BP 113/37
== END 2019-06-09 17:00 | disposition short-term general hospital (02) ==
LOC: ED 10:28
DX: I95.9 Hypotension, unspecified (principal); L03.213 Periorbital cellulitis; I48.91 Unspecified atrial fibrillation; I49.3 Ventricular premature depolarization; I45.81 Long QT syndrome; R74.8 Abnormal levels of other serum enzymes; R79.1 Abnormal coagulation profile; I12.0 Hypertensive chronic kidney disease with stage 5 chronic kidney disease or end stage renal disease; E11.22 Type 2 diabetes mellitus with diabetic chronic kidney disease; N18.6 End stage renal disease; Z99.2 Dependence on renal dialysis; Z79.4 Long term (current) use of insulin; E11.42 Type 2 diabetes mellitus with diabetic polyneuropathy; E11.51 Type 2 diabetes mellitus with diabetic peripheral angiopathy without gangrene; Z89.512 Acquired absence of left leg below knee; Z79.01 Long term (current) use of anticoagulants
CPT/HCPCS: 36415; 70481; 71045; 80053; 83605; 83690; 83735; 84484; 85025; 85610; 87040; 93005; 96361; 96365; 96366; 96368; 96375; 99285; 99291; J3370; Q9967

== ENCOUNTER 2019-06-09 17:05 | Outpatient (CLI) | payer MEDICARE, MEDICAID | END 2019-06-09 17:06 | disposition short-term general hospital (02) | LOC: EMS 17:05 | PROVIDERS: ATTEND Surgery | DX: I95.9 Hypotension, unspecified (principal); N18.6 End stage renal disease; L03.213 Periorbital cellulitis | CPT/HCPCS: A0425; A0428 ==

== ENCOUNTER 2019-06-17 13:16 | Outpatient (CLI) | payer MEDICARE, MEDICAID | END 2019-06-17 23:59 | disposition home or self-care (01) | LOC: LAB.N 13:16 | PROVIDERS: ATTEND Nurse Practitioner Gerontology | DX: I48.91 Unspecified atrial fibrillation (principal) | CPT/HCPCS: 85610 ==

== ENCOUNTER 2019-07-05 16:15 | Outpatient (CLI) | payer MEDICARE, MEDICAID | END 2019-07-05 16:16 | disposition short-term general hospital (02) | LOC: EMS 16:15 | PROVIDERS: ATTEND Surgery | DX: R11.0 Nausea (principal); R19.7 Diarrhea, unspecified; R42 Dizziness and giddiness | CPT/HCPCS: A0425; A0427 ==

== ENCOUNTER 2019-07-22 08:00 | Outpatient (CLI) | payer MEDICARE, MEDICAID | END 2019-07-22 23:59 | LOC: LAB.N 08:00 | PROVIDERS: ATTEND Nurse Practitioner Gerontology | DX: I48.91 Unspecified atrial fibrillation (principal) | CPT/HCPCS: 85610 ==

== ENCOUNTER 2019-08-19 13:45 | Outpatient (CLI) | payer MEDICARE, MEDICAID | END 2019-08-19 23:59 | LOC: LAB.N 13:45 | PROVIDERS: ATTEND Nurse Practitioner Gerontology | DX: I48.91 Unspecified atrial fibrillation (principal) | CPT/HCPCS: 85610 ==

== ENCOUNTER → 2019-08-19 | Outpatient (CLI) | payer MEDICARE, MEDICAID | LOC: LAB.N 08:00 | PROVIDERS: ATTEND Internal Medicine Pulmonary Disease | DX: Z53.9 Procedure and treatment not carried out, unspecified reason (principal) ==

== ENCOUNTER 2019-08-26 12:36 | Outpatient (CLI) | payer MEDICARE | END 2019-08-26 12:37 | disposition E | LOC: EMS 12:36 | PROVIDERS: ATTEND Surgery ==